=== PATIENT | female | born 1950 | race Caucasian/White ===

== ENCOUNTER → 2018-02-28 | Outpatient (CLI) | payer BC ==
[~2018-02-28] MED LIST: PERFLUTREN PROTEIN-A MICROSPHR 0.22 MG/ML 3 ML VIAL. IV ONE
--- NOTE | 2018-02-28 17:17 | PCVCIMAG ---
APPROVED REPORT Study performed: 02/28/2018 15:19:26 EXAM: Comprehensive 2D, Doppler, and color-flow Echocardiogram Patient Location: Echo lab Status: routine BSA: 2.27 HR: 81 bpmBP: 170/84 mmHg Rhythm: Pacemaker Other Information Study Quality: Technically Difficult Technically limited study due to body habitus and lung disease. Risk Factors: Cardiac Risk Factors: HTN Indications COPD Pacemaker CAD Echo Enhancing Agent Indication: Endocardial border delineation Agent(s) / Amount(s) Used: Adbrain 4 cc 2D Dimensions IVSd: 13.11 (7-11mm) LVDd: 43.40 mm PWd: 13.02 (7-11mm)Ascending Ao: 43.14 (22-36mm) LVDs: 32.41 (25-40mm) Left Atrium: 39.29 (27-40mm) Aortic Root: 37.27 mm Volumes Left Atrial Volume (Systole) Single Plane 4CH: 52.00 mLSingle Plane 2CH: 74.63 mL LA ESV Index: 32.00 mL/m2 Aortic Valve AoV Peak Landen.: 1.41 m/s AO Peak Gr.: 7.93 mmHgLVOT Max P.33 mmHg LVOT Max V: 1.15 m/s Mitral Valve E/A Ratio: 0.7 MV Decel. Time: 249.79 ms MV E Max Landen.: 0.85 m/s MV A Landen.: 1.25 m/s MV PHT: 72.44 ms IVRT: 138.41 ms Pulmonary Valve PV Peak Landen.: 0.85 m/sPV Peak Gr.: 2.91 mmHg Pulmonary Vein P Vein S: 0.24 m/sP Vein A: 0.40 m/s P Vein D: 0.29 m/sP Vein A Dur.: 145.3 msec P Vein S/D Ratio: 0.83 Tricuspid Valve TR Peak Landen.: 2.74 m/s TR Peak Gr.: 30.06 mmHg Left Ventricle The left ventricle is normal size. There is normal LV segmental wall motion. Mild concentric left ventricular hypertrophy. Left ventricular systolic function is mildly decreased with discordant distal septal and distal inferior wall motion due to pacing. LVEF 45-50%. Grade I - abnormal relaxation pattern. Right Ventricle The right ventricle is normal size. The right ventricular systolic function is normal. Pacemaker lead is present in the right ventricle. Atria Left atrium is mildly dilated. The right atrium size is normal. Pacemaker lead is present in the right atrium. Aortic Valve The aortic valve is normal in structure. Mild aortic regurgitation. There is no aortic valvular stenosis. Mitral Valve The mitral valve is normal in structure. Trace mitral regurgitation. No evidence of mitral valve stenosis. Tricuspid Valve The tricuspid valve is normal in structure. Mild tricuspid regurgitation with PAP of 37 mmHg. Pulmonic Valve The pulmonary valve is normal in structure. There is no pulmonic valvular regurgitation. Great Vessels The aortic root is normal in size. The ascending aorta is mildly dilated to 4.3 cm. IVC is normal in size and collapses >50% with inspiration. Pericardium There is no pericardial effusion. There is no pleural effusion. <Conclusion> Left ventricular systolic function is mildly decreased with discordant distal septal and distal inferior wall motion due to pacing. LVEF 45-50%. Mild diastolic dysfunction The aortic valve is normal in structure. Mild aortic regurgitation, no stenosis. The mitral valve is normal in structure. Trace mitral regurgitation. Mild tricuspid regurgitation with pulmonary artery pressure of 37 mmHg. The ascending aorta is mildly dilated to 4.3 cm. There is no pericardial effusion.
== END | disposition home or self-care (01) ==
LOC: PCVCIMAG 13:00
PROVIDERS: ATTEND Internal Medicine
DX: I25.10 Atherosclerotic heart disease of native coronary artery without angina pectoris (principal); I10 Essential (primary) hypertension; J44.9 Chronic obstructive pulmonary disease, unspecified; F17.200 Nicotine dependence, unspecified, uncomplicated
CPT/HCPCS: C8929; Q9956

== ENCOUNTER → 2018-09-08 | Outpatient (CLI) | payer BC | LOC: PCVCCLINIC 13:00 | PROVIDERS: ATTEND Internal Medicine | DX: Z48.812 Encounter for surgical aftercare following surgery on the circulatory system (principal); Z95.0 Presence of cardiac pacemaker | CPT/HCPCS: 93280 ==

== ENCOUNTER → 2018-09-12 | Outpatient (CLI) | payer MEDICARE, OTHER | END | disposition home or self-care (01) | LOC: PCVCCLINIC 15:00 | PROVIDERS: ATTEND Internal Medicine | DX: I65.23 Occlusion and stenosis of bilateral carotid arteries (principal); J44.9 Chronic obstructive pulmonary disease, unspecified; E78.5 Hyperlipidemia, unspecified; F17.200 Nicotine dependence, unspecified, uncomplicated; Z95.0 Presence of cardiac pacemaker; Z88.8 Allergy status to other drugs, medicaments and biological substances | CPT/HCPCS: 36415; 80061; 93005; 93280; G0463 ==